=== PATIENT | female | born 1985 | race Caucasian/White ===

== ENCOUNTER 2017-05-14 17:41 | Emergency (ER) | payer OTHER ==
[~2017-05-14] VITALS: Ht 167.6 cm; Wt 82.0 kg
[2017-05-14 17:43] VITALS: BP 149/77; PULSE 87; RESP 18; TEMP 98.7; O2SAT 99
--- NOTE | 2017-05-14 18:02 | PD ---
Physical Exam Date Seen by Provider: May 14, 2017 Time Seen by Provider: 18:00 Narrative 31 yo female here for pain in the bladder. Has had an infection or a mass. Was seen by ER and cannot be seen. Has had more pain. Question of infection vs cancer. No other medical issues. has not been able to find out why she is still having this. Vitals are stable. Awaiting bed placement. Data Data Last Documented VS Vital Signs Date Time Temp Pulse Resp B/P Pulse Ox O2 Delivery O2 Flow Rate FiO2 05/14/17 17:43 98.7 87 18 149/77 99 MDM Medical Record Reviewed: Yes Supervised Visit with KELLY: Timothy Aly May 14, 2017 18:02
[2017-05-14 18:40] LABS: BLOOD, URINE NEG (NEG); COMMENT (UR) CULTURE INDICATED; CULTURE IF INDICATED CULTURE INDICATED; GLUCOSE,URINE NEG (NEG); HYALINE CAST, URINE 8 /lpf (RARE); KETONE, URINE NEG (NEG); MUCUS URINE FEW /lpf (OCC); PH, URINE 5.5 (5.0-8.5); SQUAMOUS EPITHELIAL CELL URINE 1 /hpf (0-5)
[2017-05-14 18:42] LABS: NITRITE,URINE POS (NEG); URINE COLOR DARK-BROWN (YELLW/STRAW)
[2017-05-14] MEDS ORDERED: CLON1 PO (21:23)
[2017-05-14] MEDS ORDERED: SODIUM CHLORIDE 0.9% FLUSH 10 ML FLUSH IV FLUSH PRN (22:00)
--- NOTE | 2017-05-14 22:00 | PD ---
HPI Chief Complaint: Complaint Time Seen by Provider: 21:46 Travel History International Travel<30 days: No Contact w/Intl Traveler<30days: No Traveled to known affect area: No History of Present Illness HPI 31-year-old female here for evaluation of intermittent episodes of hematuria for the last 4 months. Patient was seen by a primary care physician as well as another emergency department and was instructed to follow-up with a urologist. She has been treated for UTI several times, however she states that there has never been any growth in her urine cultures. There is a family history of bladder cancer, and the patient is very concerned about this, and is scared because she has not been able to follow-up with a urologist. She states insurance issues for not being able to follow-up. Today she began having lower abdominal cramping as well as feeling nauseous and vomiting. No history of abdominal surgeries. LMP was about 6 days ago. She denies vaginal bleeding or discharge. PFS Past Medical History Medical History: Denies Significant Hx Diminished Hearing: No Tetanus Vaccination: Unknown Influenza Vaccination: No ?: Not Past Surgical History Surgical History: No Previous Surgery Social History Alcohol Use: No Tobacco Use: No Substance Use: No Allergies-Medications (Allergen,Severity, Reaction): Coded Allergies: No Known Allergies (Unverified , 05/14/17) Reported Meds & Prescriptions Reported Meds & Active Scripts Active Reported Klonopin (Clonazepam) 1 Mg Tab 1 Mg PO BID Review of Systems Except as stated in HPI: all other systems reviewed are Neg Physical Exam Narrative GENERAL: Well-developed, well-nourished, tearful, comfortable, no acute distress. SKIN: Focused skin assessment warm/dry. HEAD: Atraumatic. Normocephalic. EYES: Pupils equal and round. No scleral icterus. No injection or drainage. ENT: Mucous membranes pink and moist. NECK: Trachea midline. No JVD. CARDIOVASCULAR: Regular rate and rhythm. RESPIRATORY: No accessory muscle use. Clear to auscultation. Breath sounds equal bilaterally. GASTROINTESTINAL: Abdomen soft, nondistended. Mild suprapubic tenderness without peritoneal signs. Normal bowel sounds. No hernias. MUSCULOSKELETAL: No obvious deformities. No clubbing. No cyanosis. No edema. NEUROLOGICAL: Awake and alert. No obvious cranial nerve deficits. Motor grossly within normal limits. Normal speech. PSYCHIATRIC: Appropriate mood and affect; insight and judgment normal. Data Data Last Documented VS Vital Signs Date Time Temp Pulse Resp B/P Pulse Ox O2 Delivery O2 Flow Rate FiO2 05/14/17 22:15 16 97 Room Air 05/14/17 17:43 98.7 87 149/77 Orders Urinalysis - C+S If Indicated (05/14/17 18:04) Urine Culture (05/14/17 18:10) Complete Blood Count With Diff (05/14/17 21:53) Comprehensive Metabolic Panel (05/14/17 21:53) Prothrombin Time / Inr (Pt) (05/14/17 21:53) Act Partial Throm Time (Ptt) (05/14/17 21:53) Ct Abd/Pel W Iv Contrast(Rout) (05/14/17 21:53) Iv Access Insert/Monitor (05/14/17 21:53) Ecg Monitoring (05/14/17 21:53) Oximetry (05/14/17 21:53) Sodium Chloride 0.9% Flush (Ns Flush) (05/14/17 22:00) Ed Urine Pregnancytest Poc (05/14/17 21:53) Ketorolac Inj (Toradol Inj) (05/14/17 22:45) Iohexol 350 Inj (Omnipaque 350 Inj) (05/14/17 22:41) Labs Laboratory Tests Test 05/14/17 05/14/17 18:10 22:10 Urine Color DARK-BROWN Urine Turbidity CLEAR Urine pH 5.5 Urine Specific [place] 1.020 Urine Protein TRACE mg/dL Urine Glucose (UA) NEG mg/dL Urine Ketones NEG mg/dL Urine Occult Blood NEG Urine Nitrite POS Urine Bilirubin NEG Urine Urobilinogen 2.0 MG/DL Urine Leukocyte Esterase NEG Urine RBC 4 /hpf Urine WBC 1 /hpf Urine Squamous Epithelial 1 /hpf Cells Urine Hyaline Casts 8 /lpf Urine Mucus FEW /lpf Microscopic Urinalysis Comment CULTURE INDICATED White Blood Count 11.3 TH/MM3 Red Blood Count 4.44 MIL/MM3 Hemoglobin 13.5 GM/DL Hematocrit 40.1 % Mean Corpuscular Volume 90.3 FL Mean Corpuscular Hemoglobin 30.5 PG Mean Corpuscular Hemoglobin 33.8 % Concent Red Cell Distribution Width 12.1 % Platelet Count 285 TH/MM3 Mean Platelet Volume 8.3 FL Neutrophils (%) (Auto) 67.9 % Lymphocytes (%) (Auto) 24.8 % Monocytes (%) (Auto) 5.2 % Eosinophils (%) (Auto) 1.4 % Basophils (%) (Auto) 0.7 % Neutrophils # (Auto) 7.7 TH/MM3 Lymphocytes # (Auto) 2.8 TH/MM3 Monocytes # (Auto) 0.6 TH/MM3 Eosinophils # (Auto) 0.2 TH/MM3 Basophils # (Auto) 0.1 TH/MM3 CBC Comment DIFF FINAL Differential Comment Prothrombin Time 10.7 SEC Prothromb Time International 1.0 RATIO Ratio Activated Partial 28.0 SEC Thromboplast Time Sodium Level 136 MEQ/L Potassium Level 3.8 MEQ/L Chloride Level 103 MEQ/L Carbon Dioxide Level 25.2 MEQ/L Anion Gap 8 MEQ/L Blood Urea Nitrogen 14 MG/DL Creatinine 0.93 MG/DL Estimat Glomerular Filtration 70 ML/MIN Rate Random Glucose 84 MG/DL Calcium Level 9.1 MG/DL Total Bilirubin 0.8 MG/DL Aspartate Amino Transf 27 U/L (AST/SGOT) Alanine Aminotransferase 41 U/L (ALT/SGPT) Alkaline Phosphatase 75 U/L Total Protein 8.8 GM/DL Albumin 4.6 GM/DL [facility] Medical Decision Making Medical Screen Exam Complete: Yes Emergency Medical Condition: Yes Differential Diagnosis Cystitis, interstitial cystitis, UTI, PID, irritable bowel syndrome, Narrative Course Initial vital signs show heart rate 87, blood pressure 149/77, pulse ox 99% on room air, oral temp of 98.7F. CBC is unremarkable. CMP is unremarkable. UA is positive for nitrites, shows 4 rbc's, few mucus, 1 squamous epithelial cell, culture indicated. CT abdomen pelvis: CONCLUSION: 1. 2 distal right ureteral stones with moderate dilatation of the right ureter and collecting system. 2. Tiny 2 mm nonobstructing renal stones seen bilaterally in the collecting systems. 3. Mild hepatic steatosis. Patient was made aware of all findings. She is resting comfortably. Abdominal exam is benign. She was given a copy of her CT abdomen pelvis report. Plan is to discharge her home with a prescription for Flomax, pain medication, antiemetics, and a urine strainer. PMD/urology follow-up this week. She was informed on when to return to the emergency department. She verbalizes understanding and agreement with plan. Diagnosis Primary Impression: Nephrolithiasis Additional Impression: Hematuria Referrals: Darrin Galloway MD 1 week Urologist Primary Care Physician 3 days Additional Instructions: Follow-up with your primary care physician this week. Follow-up with urologist Dr. Galloway or a urologist of your choice this week. Return to the emergency department for worsening symptoms or any other concerns as discussed. Scripts Hydrocodone-Acetaminophen (Lortab)5-325 Mg Tab1 Tab PO Q6H PRN (PAIN) #12 TAB Ref 0 Prov:Bear Murguia MD 05/14/17 Ondansetron Odt (Zofran Odt)4 Mg Tab4 Mg SL Q8HR PRN (Nausea/Vomiting) #20 TAB Ref 0 Prov:Bear Murguia MD 05/14/17 Tamsulosin (Flomax)0.4 Mg Cap0.4 Mg PO HS #14 CAP Ref 0 Prov:Bear Murguia MD 05/14/17 Disposition: 01 DISCHARGE HOME Condition: Stable Bear Murguia MD May 14, 2017 22:00
[2017-05-14 22:15] VITALS: RESP 16; O2SAT 97
[2017-05-14 22:25] LABS: AUTOMATED NEUTROPHIL # 7.7 TH/MM3 (1.8-7.7); BASOPHIL # 0.1 TH/MM3 (0-0.2); BASOPHIL % 0.7 % (0.0-2.0); EOSINOPHIL # 0.2 TH/MM3 (0-0.4); EOSINOPHIL % 1.4 % (0.0-4.0); HEMATOCRIT 40.1 % (35.0-46.0); HEMO FLAGS DIFF FINAL; LYMPH % 24.8 % (9.0-44.0); LYMPHOCYTE # 2.8 TH/MM3 (1.0-4.8); MEAN CELL VOLUME 90.3 FL (80.0-100.0); MEAN CORPUSCULAR HEMOGLOBIN 30.5 PG (27.0-34.0); MEAN CORPUSCULAR HGB CONC 33.8 % (32.0-36.0); MONO % 5.2 % (0.0-8.0); NEUT % 67.9 % (16.0-70.0); PLATELET COUNT 285 TH/MM3 (150-450); RED BLOOD COUNT 4.44 MIL/MM3 (4.00-5.30); RED CELL DISTRIBUTION WIDTH 12.1 % (11.6-17.2); WHITE BLOOD COUNT 11.3 TH/MM3 (4.0-11.0)
[2017-05-14 22:35] LABS: PROTHROMBIN TIME - PATIENT 10.7 SEC (9.8-11.6)
[2017-05-14 22:40] LABS: ANION GAP 8 MEQ/L (5-15); AST (GOT) 27 U/L (15-37); BICARBONATE 25.2 MEQ/L (21.0-32.0); BLOOD UREA NITROGEN 14 MG/DL (7-18); CHLORIDE 103 MEQ/L (98-107); GLOMERULAR FILTRATION RATE 70 ML/MIN (>89); POTASSIUM 3.8 MEQ/L (3.5-5.1); SODIUM (NA) 136 MEQ/L (136-145)
[2017-05-14 22:41] LABS: ALT (GPT) 41 U/L (10-53)
[2017-05-14] MEDS ORDERED: IOHEXOL 350 MG/ML 10 ML VIAL (for RAD DIAG) IV ONE (22:41)
[2017-05-14 22:42] LABS: ALKALINE PHOSPHATASE 75 U/L (45-117); TOTAL BILIRUBIN ADULT 0.8 MG/DL (0.2-1.0)
[2017-05-14] MEDS ORDERED: KETOROLAC TROMETHAMINE 30 MG/ML (IVP) VIAL IV PUSH ONE (22:45)
--- NOTE | 2017-05-14 23:11 | RADRPT ---
EXAM DATE/TIME: 05/14/2017 22:37 [place] COMPARISON: No previous studies available for comparison. INDICATIONS : Bilateral lower quadrant pain and hematuria. IV CONTRAST: 88 cc Omnipaque 350 (iohexol) IV ORAL CONTRAST: No oral contrast ingested. RADIATION DOSE: 10.57 CTDIvol (mGy) MEDICAL HISTORY : None SURGICAL HISTORY : None. ENCOUNTER: Initial ACUITY: 3 months PAIN SCALE: 7/10 LOCATION: Bilateral lower quadrant TECHNIQUE: Volumetric scanning of the abdomen and pelvis was performed. Using automated exposure control and ad justment of the mA and/or kV according to patient size, radiation dose was kept as low as reasonably achievable to obtain optimal diagnostic quality images. DICOM format image data is available electro nically for review and comparison. FINDINGS: LOWER LUNGS: The visualized lower lungs are clear. LIVER: There is diffuse decreased attenuation of the liver without lesion. There is no dilation of the bili severo tree. No calcified gallstones. SPLEEN: Normal size without lesion. PANCREAS: Within normal limits. KIDNEYS: There is moderate dilatation of the right collecting system. There are tiny nonobstructing stones in the renal collecting systems bilaterally. There are 2 stones seen in the distal right ureter measurin g 0.5 cm approximately 2 cm from the UVJ and 3 mm at the UVJ. The left collecting system is not dilat ed. ADRENAL GLANDS: Within normal limits. VASCULAR: There is no aortic aneurysm. BOWEL/MESENTERY: The stomach, small bowel, and colon demonstrate no acute abnormality. There is no free intraperitone al air or fluid. ABDOMINAL WALL: Within normal limits. RETROPERITONEUM: There is no lymphadenopathy. BLADDER: No wall thickening or mass. REPRODUCTIVE: Within normal limits. INGUINAL: There is no lymphadenopathy or hernia. MUSCULOSKELETAL: Within normal limits for patient age. There is a sclerotic focus at the left femoral head likely rela nuha to a bone island. CONCLUSION: 1. 2 distal right ureteral stones with moderate dilatation of the right ureter and collecting system. 2. Tiny 2 mm nonobstructing renal stones seen bilaterally in the collecting systems. 3. Mild hepatic steatosis. Sylvain Leija MD on May 14, 2017 at 23:04 Board Certified Radiologist. This report was verified electronically.
[2017-05-14] MEDS ORDERED: HYDR-3533 PO (23:47)
[2017-05-14] MEDS ORDERED: TAMS5CAP PO (23:47)
[2017-05-14] MEDS ORDERED: ZOFR4TAB3 SL (23:47)
[2017-05-15] MEDS ORDERED: TAMSULOSIN HCL 0.4 MG CAP PO ONE
== END 2017-05-15 00:01 | disposition home or self-care (01) ==
LOC: NEPD 17:41
DX: N20.2 Calculus of kidney with calculus of ureter (principal); B96.89 Other specified bacterial agents as the cause of diseases classified elsewhere
CPT/HCPCS: 74177; 80053; 81001; 84703; 85025; 85610; 85730; 87086; 96374; 99285; J1885; Q9967